=== PATIENT | male | born 1990 | race Caucasian/White ===

== ENCOUNTER 2018-06-13 22:05 | Emergency (ER) | payer OTHER ==
[2018-06-13] MEDS ORDERED: Ibuprofen TAB* 400 MG ONE (23:23)
[2018-06-13] MEDS ORDERED: Ibuprofen TAB* 400 MG PO ONE (23:47)
[2018-06-14 00:19] VITALS: BP 134/85
--- NOTE | 2018-06-14 02:21 | ED ---
Laceration/Wound HPI - HPI Summary HPI Summary: Patient is a 27 y/o M w/ c/o left hand laceration onsetting today around 2129. He was at work at [employer] and states he fell forward and hit a metal josé antonio with a round ball at its tip on the way down. No bleeding is noted by the patient. Patient is right handed. On triage, pain is rated 9/10 on triage. He reports some pain with movement, nothing is noted to alleviate Sx. - History of Current Complaint Stated Complaint: LT HAND INJURY Time Seen by Provider: 06/13/18 23:06 Hx Obtained From: Patient Onset/Duration: Lasting Hours - onset 2129 today, Still Present Aggravating: Movement Alleviating: Nothing Timing: Constant Pain Intensity: 9 Pain Scale Used: 0-10 Numeric - 9/10 - Allergy/Home Medications Allergies/Adverse Reactions: Allergies Allergy/AdvReac Type Severity Reaction Status Date / Time No Known Allergies Allergy Verified 06/13/18 22:09 Home Medications: Home Medications Albuterol Sulfate [Ventolin Hfa] 1 - 2 puff INH DAILY PRN 06/14/18 [History Confirmed 06/14/18] Gabapentin 600 mg PO BID 06/14/18 [History Confirmed 06/14/18] Lisinopril TAB* [Prinivil TAB 5 MG*] 5 mg PO DAILY 06/14/18 [History Confirmed 06/14/18] cloNIDine HCl [Catapres 0.2 MG TAB] 0.2 mg PO BID 06/14/18 [History Confirmed ] PMH/Surg Hx/FS Hx/Imm Hx Endocrine/Hematology History: Denies: Hx Diabetes, Hx Thyroid Disease Cardiovascular History: Reports: Hx Hypertension Respiratory History: Denies: Hx Asthma, Hx Chronic Obstructive Pulmonary Disease (COPD) GI History: Denies: Hx Ulcer History: Denies: Hx Renal Disease Psychiatric History: Reports: Hx Anxiety, Hx Depression, Hx of Violent Episodes Against Others Denies: Hx Eating Disorder Infectious Disease History: No Infectious Disease History: Denies: Hx Hepatitis, Hx Human Immunodeficiency Virus (HIV), Traveled Outside the [place] in Last 30 Days - Family History Known Family History: Negative: Hypertension, Diabetes - Social History Alcohol Use: Occasionally Hx Substance Use: Yes Substance Use Type: Reports: Marijuana, Sedatives Hx Tobacco Use: Yes Smoking Status (MU): Heavy Every Day Tobacco Smoker Amount Used/How Often: 1-1.5 PPD Review of Systems Negative: Fever - on vitals, temp is 98.2 F Positive: Other - laceration on left hand All Other Systems Reviewed And Are Negative: Yes Physical Exam - Summary Physical Exam Summary: Appearance: Well appearing, no pain distress Skin: warm, dry, reflects adequate perfusion; 1 cm puncture on the center of his left palm. Head/face: normal Eyes: EOMI, JESS ENT: normal Neck: supple, non-tender Respiratory: CTA, breath sounds present Cardiovascular: RRR, pulses symmetrical Abdomen: non-tender, soft Bowel Sounds: present Musculoskeletal: normal, strength/ROM intact Neuro: normal, sensory motor intact, A&Ox3 Triage Information Reviewed: Yes Vital Signs On Initial Exam: Initial Vitals Temp Pulse Resp BP Pulse Ox 98.2 F 80 16 143/86 100 06/13/18 22:09 06/13/18 22:09 06/13/18 22:09 06/13/18 22:09 06/13/18 22:09 Vital Signs Reviewed: Yes Procedures - Laceration/Wound Repair 1 Location: Other - left hand Description: Linear - 1 cm Anesthesia: 1.0%, Lido Length, Depth and Shape: 1cm length, linear Betadine Prep?: No - chlorhexidine Laceration/Wound Explored: clean Closure: Single Layer Suture Type: Prolene - a single horizontal mattress suture of 5-0 Number of Sutures: 1 Layer Closure?: No Sterile Dressing Applied?: No Diagnostics - Vital Signs Vital Signs Temp Pulse Resp BP Pulse Ox 06/14/18 00:17 98.2 F 74 14 134/85 99 06/13/18 22:09 98.2 F 80 16 143/86 100 - Laboratory Lab Statement: Any lab studies that have been ordered have been reviewed, and results considered in the medical decision making process. Re-Evaluation - Re-Evaluation First Eval Re-Evaluation Time: 23:30 Change: Improved Comment: Laceration repair was performed, follow up was discussed with patient. He is agreeable with plan of discharge. Laceration Repair Course/Dx - Course Course Of Treatment: Can't wound on the end of the hook at work with blunt force injury. Laceration cleaned and repaired. X-ray are negative. - Clinical Impression Provider Diagnoses: Laceration of left hand, Contusion of left hand Discharge - Sign-Out/Discharge Documenting (check all that apply): Patient Departure - discharge - Discharge Plan Condition: Improved Disposition: HOME Patient Education Materials: Laceration (ED) Referrals: Efra Ernandez MD [Primary Care Provider] - Additional Instructions: Ice the sore area. Dress the wound with bacitracin ointment. Suture to be removed in 10 days' time. Return if worse, concern for infection, new symptoms or other concerns. Keep clean and dry at work. - Billing Disposition and Condition Condition: IMPROVED Disposition: Home - Attestation Statements Document Initiated by Scribe: Yes Documenting Scribe: John Nicholas Provider For Whom Scribe is Documenting (Include Credential): Wilman Hughes MD Scribe Attestation: John Chinchilla, scribed for Wilman Hughes MD on 06/14/18 at 0636. Scribe Documentation Reviewed: Yes Provider Attestation: The documentation as recorded by the Jhon arevalo accurately reflects the service I personally performed and the decisions made by Wilman caro MD
--- NOTE | 2018-06-14 07:53 | RAD ---
INDICATION: Right hand injury COMPARISON: March 05, 2016 TECHNIQUE: AP, lateral, and oblique views were obtained. FINDINGS: There is no acute fracture or foreign body. The joint spaces are maintained. There does appear to be some soft tissue edema on the palmar surface is a small amount of soft tissue air. IMPRESSION: SOFT TISSUE EDEMA WITH A SMALL AMOUNT OF SOFT TISSUE AIR. NO FRACTURE OR FOREIGN BODY. R0
== END 2018-06-14 00:20 | disposition home or self-care (01) ==
LOC: ED 22:05
DX: S61.412A Laceration without foreign body of left hand, initial encounter (principal); S60.222A Contusion of left hand, initial encounter; W18.09XA Striking against other object with subsequent fall, initial encounter; Y93.9 Activity, unspecified; Y92.511 Restaurant or cafe as the place of occurrence of the external cause; Y99.0 Civilian activity done for income or pay; I10 Essential (primary) hypertension; F17.210 Nicotine dependence, cigarettes, uncomplicated
CPT/HCPCS: 12001; 99282; A9270-GY

== ENCOUNTER 2020-03-20 07:26 | Inpatient (IN) ==
[2020-03-20 08:05] LABS: ABS Basophils 0.1 10^3/ul (0-0.2); ABS Eosinophils 1.4 10^3/ul (0-0.6); ABS Monocytes 0.5 10^3/ul (0-0.8); Eosinophil % 15.1 %; Hematocrit 46 % (42-52); Hemoglobin 15.9 g/dL (14.0-18.0); Lymphocyte % 21.9 %; Mean Corpuscular HGB Conc 35 g/dL (31-36); Mean Corpuscular Hemoglobin 31 pg (27-31); Mean Corpuscular Volume 90 fL (80-94); Mean Platelet Volume 8.3 fL (7.4-10.4); Platelet Count 243 10^3/uL (150-450); Red Blood Count 5.11 10^6 /uL (4.18-5.48); Red Cell Distribution Width 14 % (10-15); White Blood Count 8.9 10^3/uL (3.5-10.8)
[2020-03-20 08:28] LABS: ALT 24 U/L (7-52); AST 32 U/L (13-39); Albumin 4.4 g/dL (3.2-5.2); Albumin/Globulin Ratio 1.7 (1-3); Alkaline Phosphatase 112 U/L (34-104); Anion Gap 4 mmol/L (2-11); BUN/Creatinine Ratio 13.6 (8-20); Blood Urea Nitrogen 11 mg/dL (6-24); CO2 Carbon Dioxide 31 mmol/L (22-32); Calcium 9.8 mg/dL (8.6-10.3); Chloride 103 mmol/L (101-111); EGFR African American 137.3 (>60); EGFR Non-African American 113.5 (>60); Globulin 2.6 g/dL (2-4); Glucose 98 mg/dL (70-100); Potassium 4.4 mmol/L (3.5-5.0); Sodium 138 mmol/L (135-145)
[2020-03-20 08:39] LABS: Acetaminophen < 15 mcg/mL; Alcohol, S < 10 mg/dL (<10); Salicylate < 2.50 mg/dL (<30)
[2020-03-20 08:54] LABS: TSH (Thyroid Stimulating Horm) 0.83 mcIU/mL (0.34-5.60)
[2020-03-20] MEDS ORDERED: Nicotine GUM 2MG FRUIT FLAVOR PO PRN (10:21)
[2020-03-20] MEDS ORDERED: Al Hydrox/Mg Hydrox/Simet LIQ 30 ML UDC PO PRN (12:00)
[2020-03-20 13:55] LABS: Urine Appearance Cloudy; Urine Bilirubin Negative (Negative); Urine Blood Negative (Negative); Urine Color Yellow; Urine Glucose Negative (Negative); Urine Ketones Negative (Negative); Urine Nitrite Negative (Negative); Urine Protein Negative (Negative); Urine Specific Gravity 1.017 (1.010-1.030); Urine Urobilinogen Negative (Negative)
[2020-03-20 14:25] LABS: Urine Benzodiazepine Screen Presumptive Positive (None Detect); Urine Opiates Screen None Detected (None Detect)
[2020-03-20] MEDS: Buprenorp/Nalox 4-1 MG FILM SL FILM SCH (16:52)
[2020-03-20] MEDS: Nicotine PATCH 21 MG/24 HR PATCH TRANSDERM SCH (16:56)
[2020-03-20] MEDS: Nicotine GUM 4MG FRUIT FLAVOR PO PRN ×2 (18:42→21:13)
[2020-03-20 18:53] LABS: Urine Buprenorphine Screen Presumptive Positive (None Detect); Urine Fentanyl Screen None Detected (None Detect); Urine Hydrocodone Screen None Detected (None Detect)
[2020-03-20] MEDS: Buprenorp/Nalox 8-2 MG FILM SL FILM SCH (22:41)
[2020-03-21] MEDS: Nicotine PATCH 21 MG/24 HR PATCH TRANSDERM SCH (09:57)
[2020-03-21] MEDS: Buprenorp/Nalox 8-2 MG FILM SL FILM SCH ×2 (09:57→20:50)
[2020-03-21] MEDS ORDERED: Buprenorp/Nalox 4-1 MG FILM SL FILM SCH (14:00)
[2020-03-21] MEDS: Buprenorp/Nalox 4-1 MG FILM SL FILM SCH (14:32)
[2020-03-21] MEDS: Nicotine GUM 4MG FRUIT FLAVOR PO PRN (21:06)
[2020-03-22 07:54] LABS: HDL Cholesterol 57.2 mg/dL
[2020-03-22] MEDS: Buprenorp/Nalox 8-2 MG FILM SL FILM SCH ×2 (08:33→20:47)
[2020-03-22] MEDS: Nicotine PATCH 21 MG/24 HR PATCH TRANSDERM SCH (08:33)
[2020-03-22] MEDS: Nicotine GUM 4MG FRUIT FLAVOR PO PRN ×3 (09:46→21:27)
[2020-03-22] MEDS: Buprenorp/Nalox 4-1 MG FILM SL FILM SCH (18:14)
[2020-03-23] MEDS: Nicotine PATCH 21 MG/24 HR PATCH TRANSDERM SCH (08:45)
[2020-03-23] MEDS: Buprenorp/Nalox 8-2 MG FILM SL FILM SCH ×2 (08:45→20:33)
[2020-03-23] MEDS: Nicotine GUM 4MG FRUIT FLAVOR PO PRN ×3 (09:57→17:40)
[2020-03-23] MEDS: Buprenorp/Nalox 4-1 MG FILM SL FILM SCH (14:31)
[2020-03-24] MEDS: Buprenorp/Nalox 8-2 MG FILM SL FILM SCH (08:43)
[2020-03-24] MEDS: Nicotine PATCH 21 MG/24 HR PATCH TRANSDERM SCH (08:45)
[2020-03-24] MEDS: Nicotine GUM 4MG FRUIT FLAVOR PO PRN (09:13)
[2020-03-24 09:54] VITALS: BP 130/75
== END 2020-03-24 12:15 | disposition home or self-care (01) | DRG 753 ==
LOC: ED 07:26 → BSU 14:36
PROVIDERS: ADMIT Psychiatry & Neurology Psychiatry; ATTEND Psychiatry & Neurology Psychiatry

== ENCOUNTER 2024-02-24 18:32 | Inpatient (IN) ==
[2024-02-24] MEDS ORDERED: Droperidol 5 MG/2 ML 2 ML VIAL ONE (18:48)
[2024-02-24] MEDS: Droperidol 5 MG/2 ML 2 ML VIAL IV ONE (18:59)
[2024-02-24 19:03] LABS: ABS Basophils 0.1 10^3/uL (0.0-0.1); ABS Eosinophils 0.5 10^3/uL (0.0-0.5); ABS Lymphocytes 2.7 10^3/uL (1.0-4.8); ABS Monocytes 0.7 10^3/uL (0.0-1.1); ABS Neutrophils 7.2 10^3/uL (1.5-7.6); ABS Nucleated RBC 0.01 10^3/ul; Eosinophil % 4.1 %; Hematocrit 41.2 % (38-53); Hemoglobin 14.7 g/dL (13.2-16.3); Lymphocyte % 24.5 %; Mean Corpuscular Hemoglobin 30.8 pg (27-33); Mean Corpuscular Hgb Conc 35.6 g/dL (31-36); Mean Corpuscular Volume 86.5 fL (80-97); Mean Platelet Volume 8.8 fL (7.5-11.2); Nucleated Red Blood Cells % 0.1 %/100WBC (0.0-0.8); Platelet Count 305 10^3/uL (150-450); Red Blood Count 4.76 10^6/uL (4.06-5.63); Red Cell Distribution Width 13.3 % (12-17); White Blood Count 11.1 10^3/uL (3.6-10.2)
[2024-02-24] MEDS: Lactated Ringers 1000 ml BAG 1,000 ML IV ONE (19:37)
[2024-02-24 20:07] LABS: ALT 20 U/L (7-52); AST 25 U/L (13-39); Acetaminophen < 15 mcg/mL; Albumin 4.5 g/dL (3.2-5.2); Albumin/Globulin Ratio 2.1 (1-3); Alcohol, S < 13 mg/dL (<13); Alkaline Phosphatase 91 U/L (35-149); Anion Gap 14 mmol/L (2-16); Blood Urea Nitrogen 11 mg/dL (6-24); CO2 Carbon Dioxide 21 mmol/L (22-32); Calcium 11.2 mg/dL (8.6-10.3); Chloride 104 mmol/L (101-111); Creatinine, Serum 1.01 mg/dL (0.67-1.17); Globulin 2.1 g/dL (2-4); Glucose 114 mg/dL (70-100); Potassium 3.3 mmol/L (3.5-5.0); Salicylate < 2.50 mg/dL (<30); Sodium 139 mmol/L (135-145); TSH Ultra Thyroid Stim Horm 0.96 mcIU/mL (0.34-5.60); Total Bilirubin 0.6 mg/dL (0.2-1.0); Total Protein 6.6 g/dL (6.4-8.9); eGFR CKD-EPI 101.3 (>60)
[2024-02-24] MEDS: Potassium Chlor 20 meq TAB.ER PO ONE (23:35)
[2024-02-25 00:16] LABS: Urine Benzodiazepine Screen None Detected (None Detect); Urine Cannabinoids Screen Presumptive Positive (None Detect); Urine Opiates Screen None Detected (None Detect)
[2024-02-25 00:21] LABS: Urine Appearance Clear; Urine Bilirubin Negative (Negative); Urine Blood Negative (Negative); Urine Color Light-Yellow; Urine Glucose Negative (Negative); Urine Ketones Negative (Negative); Urine Nitrite Negative (Negative); Urine Protein 1+ (>=30 mg/dL) (Negative); Urine Specific Gravity 1.012 (1.002-1.030); Urine Urobilinogen Negative (Negative); Urine pH 7.5 (5.0-8.0)
[2024-02-25 00:33] LABS: Urine Bacteria Absent /HPF (Absent); Urine Red Blood Cell 1+(3-5/hpf) /HPF (0-Trace); Urine Sperm Present /HPF (Absent); Urine White Blood Cell 3+(>20/hpf) /HPF (0-Trace)
[2024-02-25] MEDS ORDERED: Al Hydrox/Mg Hydrox/Simet LIQ 30 ML UDC PO PRN (06:15)
[2024-02-25] MEDS: Nicotine GUM 4MG FRUIT FLAVOR PO PRN (09:35)
[2024-02-25] MEDS: Vitamin THERAPEUTIC TAB PO SCH (09:44)
[2024-02-25] MEDS: Nicotine PATCH 21 MG/24 HR PATCH TRANSDERM SCH (09:44)
[2024-02-27 08:07] LABS: HDL Cholesterol 52.7 mg/dL
[2024-02-27] MEDS: OLANZapine 5 mg TAB *ODT PO PRN (14:22)
[2024-02-27] MEDS: OLANZapine 10 mg TAB*ODT PO SCH (22:04)
[2024-03-04 08:44] VITALS: BP 136/80
== END 2024-03-04 11:32 | disposition home or self-care (01) | DRG 776 ==
LOC: ED 18:32 → EDHOLD 02-25 05:32 → BSU 02-25 07:51
PROVIDERS: ADMIT Psychiatry & Neurology Psychiatry; ATTEND Psychiatry & Neurology Psychiatry

== ENCOUNTER 2024-05-17 15:08 | Inpatient (IN) ==
[2024-05-17 17:25] LABS: Urine Benzodiazepine Screen None Detected (None Detect); Urine Cannabinoids Screen Presumptive Positive (None Detect); Urine Opiates Screen None Detected (None Detect)
[2024-05-17] MEDS ORDERED: Al Hydrox/Mg Hydrox/Simet LIQ 30 ML UDC PO PRN (22:24)
[2024-05-18] MEDS: Vitamin THERAPEUTIC TAB PO SCH (10:26)
[2024-05-18] MEDS: Nicotine PATCH 14 MG/24 HR PATCH TRANSDERM SCH (11:31)
[2024-05-18] MEDS: Nicotine GUM 2MG FRUIT FLAVOR PO PRN (17:31)
[2024-05-20 08:07] LABS: ABS Basophils 0.1 10^3/uL (0.0-0.1); ABS Eosinophils 0.5 10^3/uL (0.0-0.5); ABS Lymphocytes 2.3 10^3/uL (1.0-4.8); ABS Monocytes 0.6 10^3/uL (0.0-1.1); ABS Neutrophils 6.9 10^3/uL (1.5-7.6); Eosinophil % 4.4 %; Hematocrit 41.9 % (38-53); Hemoglobin 14.4 g/dL (13.2-16.3); Lymphocyte % 22.3 %; Mean Corpuscular Hemoglobin 31.1 pg (27-33); Mean Corpuscular Hgb Conc 34.4 g/dL (31-36); Mean Corpuscular Volume 90.5 fL (80-97); Mean Platelet Volume 9.5 fL (7.5-11.2); Platelet Count 274 10^3/uL (150-450); Red Blood Count 4.62 10^6/uL (4.06-5.63); Red Cell Distribution Width 13.5 % (12-17); White Blood Count 10.3 10^3/uL (3.6-10.2)
[2024-05-20 08:24] LABS: Albumin 3.8 g/dL (3.2-5.2); Calcium 10.2 mg/dL (8.6-10.3); Creatinine, Serum 0.72 mg/dL (0.67-1.17); Globulin 1.9 g/dL (2-4); Potassium 4.5 mmol/L (3.5-5.0); Total Bilirubin 0.3 mg/dL (0.2-1.0); Total Protein 5.7 g/dL (6.4-8.9); eGFR CKD-EPI 124.5 (>60)
[2024-05-20 08:38] LABS: TSH Ultra Thyroid Stim Horm 0.93 mcIU/mL (0.34-5.60)
[2024-05-25] MEDS: Nicotine PATCH 14 MG/24 HR PATCH TRANSDERM SCH (08:35)
[2024-05-29 10:28] VITALS: BP 155/78
== END 2024-05-30 08:40 | disposition home or self-care (01) | DRG 776 ==
LOC: ED 15:08 → EDHOLD 23:09 → BSU 05-18 06:42
PROVIDERS: ADMIT Psychiatry & Neurology Addiction Psychiatry; ATTEND Psychiatry & Neurology Psychiatry